=== PATIENT | female | born 1995 | race African-American/Black ===

== ENCOUNTER 2025-03-16 08:04 | Emergency (ER) | payer MEDICAID ==
[~2025-03-16] VITALS: Ht 154.9 cm; Wt 99.0 kg
[2025-03-16 08:12] VITALS: O2SAT 100
[2025-03-16] MEDS: ONDANSETRON 4MG ODT PO ONE (08:36)
[2025-03-16] MEDS: ACETAMINOPHEN 325MG TABLET PO ONE (08:37)
[2025-03-16 09:11] LABS: BASOPHILS % 0.3 % (0.0-2.0); EOSINOPHILS % 0.8 % (0.0-5.0); HEMATOCRIT. 38.2 % (36.0-48.0); HEMOGLOBIN. 12.4 g/dL (12.0-16.0); LYMPHOCYTES % 18.1 % (20.0-50.0); MEAN PLATELET VOLUME 8.2 fl (7.4-10.4); MONOCYTES % 3.8 % (2.0-8.0); NEUTROPHILS % 77.0 % (40.0-76.0); PLATELET 333 x1000/uL (130-400); RED BLOOD CELL COUNT 4.87 mill/uL (4.2-5.4); RED CELL DISTRIBUTION WIDTH 13.9 % (11.6-14.6)
[2025-03-16 09:18] LABS: HCG SCREEN NEGATIVE
[2025-03-16 09:23] LABS: CREATININE 0.7 mg/dL (0.6-1.0)
[2025-03-16 09:24] LABS: UREA NITROGEN BLOOD 7 mg/dL (9-23)
[2025-03-16 09:25] LABS: ASPARTATE AMINOTRANSFERASE 11 IU/L (<34)
[2025-03-16 09:26] LABS: BILIRUBIN DIRECT < 0.1 mg/dL (<=3.0); BILIRUBIN TOTAL 0.2 mg/dL (0.1-1.0)
[2025-03-16 09:27] LABS: PROTEIN TOTAL 7.5 g/dL (6.0-8.3)
[2025-03-16 09:52] VITALS: BP 122/81; PULSE 72; RESP 14; TEMP 36.7; O2SAT 100
== END 2025-03-16 09:53 | disposition home or self-care (01) ==
LOC: ER 08:04
DX: K80.20 Calculus of gallbladder without cholecystitis without obstruction (principal); Z98.51 Tubal ligation status
CPT/HCPCS: 99284; 76705; 80076; 80048; 84703; 83690; 85025; 36415; Q0162